=== PATIENT | female | born 1955 | race African-American/Black ===

== ENCOUNTER 2016-12-31 17:45 | Emergency (ER) | payer OTHER ==
--- NOTE | 2016-12-31 19:01 | ER Document Report ---
HPI - HPI Pain Level: 3 - DERM Skin Color: Normal, [place] Past Medical History Renal/ Medical History: Denies: Hx Peritoneal Dialysis Vertical Provider Document - INFECTION CONTROL TRAVEL OUTSIDE OF THE [place] IN LAST 30 DAYS: No - RESPIRATORY O2 Sat by Pulse Oximetry: 99 Course - Vital Signs Vital signs: Temp Pulse Resp BP Pulse Ox 98.6 F 96 18 134/74 H 99 12/31/16 18:07 12/31/16 18:07 12/31/16 18:07 12/31/16 18:07 12/31/16 18:07
[2016-12-31] MEDS ORDERED: OXYCODONE-ACETAMINOPHEN 5-325 MG TABLET PO ONE (19:12)
[2016-12-31] MEDS ORDERED: ONDANSETRON 4 MG TAB.RAPDIS PO ONE (19:12)
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
[2016-12-31 20:40] LABS: ABSOLUTE MONOCYTES (AUTO) 0.9 10^3/uL (0.1-1.4); ABSOLUTE NEUT (AUTO) 10.4 10^3/uL (1.7-8.2); BASOPHILS % (AUTO) 0.3 % (0-2); EOSINOPHILS % (AUTO) 0.1 % (0-6); HEMATOCRIT 37.5 % (36.0-47.0); HEMOGLOBIN 12.5 g/dL (12.0-15.5); MEAN CORPUSCULAR HEMOGLOBIN 30.1 pg (27.0-33.4); MEAN CORPUSCULAR HGB CONC 33.4 g/dL (32.0-36.0); MEAN CORPUSCULAR VOLUME 90 fl (80-97); MONOCYTES % (AUTO) 7.4 % (3-13); RED BLOOD COUNT 4.16 10^6/uL (3.72-5.28); SEGMENTED NEUTROPHILS % (AUTO) 84.2 % (42-78); WHITE BLOOD COUNT 12.3 10^3/uL (4.0-10.5)
[2016-12-31 20:51] LABS: ALANINE AMINOTRANSFERASE 42 U/L (9-52); ALBUMIN 4.8 g/dL (3.5-5.0); ALKALINE PHOSPHATASE 73 U/L (38-126); ANION GAP 15 (5-19); ASPARTATE AMINO TRANSFERASE 46 U/L (14-36); BILIRUBIN,DIRECT 0.1 mg/dL (0.0-0.4); BILIRUBIN,TOTAL 0.9 mg/dL (0.2-1.3); BLOOD UREA NITROGEN 23 mg/dL (7-20); CALCIUM 10.2 mg/dL (8.4-10.2); CARBON DIOXIDE 26 mmol/L (22-30); CHLORIDE 100 mmol/L (98-107); CREATININE RESULT 0.79 mg/dL (0.52-1.25); GLUCOSE 115 mg/dL (75-110); POTASSIUM 3.8 mmol/L (3.6-5.0); SODIUM 141.3 mmol/L (137-145); TOTAL PROTEIN 7.6 g/dL (6.3-8.2)
[2016-12-31] MEDS ORDERED: HYDROCODONE/ACETAMINOPHEN 5-325 MG 6 TAB/DSPK PO PRN (23:01)
[2016-12-31 23:35] VITALS: BP 115/65
== END 2016-12-31 23:35 | disposition home or self-care (01) ==
LOC: ER 17:45
DX: S20.01XA Contusion of right breast, initial encounter (principal); S00.12XA Contusion of left eyelid and periocular area, initial encounter; S10.93XA Contusion of unspecified part of neck, initial encounter; S30.1XXA Contusion of abdominal wall, initial encounter; R10.84 Generalized abdominal pain; R07.89 Other chest pain; M25.562 Pain in left knee; M25.561 Pain in right knee; V89.2XXA Person injured in unspecified motor-vehicle accident, traffic, initial encounter
CPT/HCPCS: 99285; 36415; 85025; 80053; 73560; 71260; 74177; S0119